=== PATIENT | female | born 2000 | race Hispanic/Latino ===

== ENCOUNTER 2021-01-14 18:25 | Emergency (ER) | payer MEDICAID ==
[~2021-01-14] VITALS: Ht 154.9 cm; Wt 56.2 kg
[2021-01-14 18:47] LABS: APPEARANCE,URINE CLOUDY (CLEAR); BILIRUBIN,URINE NEGATIVE (NEGATIVE); COLOR,URINE YELLOW (YELLOW); GLUCOSE, URINE (UA) NEGATIVE (NEGATIVE); KETONES,URINE NEGATIVE (NEGATIVE); LEUKOCYTE ESTERASE ,URINE LARGE (NEGATIVE); NITRATE,URINE NEGATIVE (NEGATIVE); OCCULT BLOOD,URINE MODERATE (NEGATIVE); PH,URINE 8.5 (5.0-8.0); PROTEIN,URINE 30 mg/dL (NEGATIVE); UROBILINOGEN,URINE 0.2 mg/dL (0.2-1.0)
[2021-01-14 18:50] VITALS: BP 110/73
[2021-01-14 18:52] LABS: HCG,QUAL RESULT NEGATIVE (NEGATIVE)
[2021-01-14 18:58] LABS: BASOPHILS % (AUTO) 0.3 % (0.0-5.0); EOSINOPHILS % (AUTO) 0.6 % (0.0-8.0); HEMATOCRIT 38.3 % (36-48); LYMPHOCYTES % (AUTO) 15.9 % (21.0-51.0); MEAN CORPUSCULAR HEMOGLOBIN 30.4 pg (27.0-33.0); MEAN CORPUSCULAR HGB CONC 32.6 g/dL (32.0-36.0); MEAN CORPUSCULAR VOLUME 93.2 fL (80-100); MONOCYTES % (AUTO) 6.4 % (3.0-13.0); NEUTROPHILS % (AUTO) 76.3 % (40.0-77.0); PLATELET COUNT (AUTO) 347 K/uL (130-400); RED BLOOD CELL COUNT(AUTO) 4.11 MIL/uL (4.00-5.50); RED CELL DISTRIBUTION WIDTH 13.4 % (11.0-15.5); WHITE BLOOD COUNT (AUTO) 12.2 K/uL (4.8-10.8)
[2021-01-14] MEDS ORDERED: ONDANSETRON 4MG INJ IVP ONE (19:00)
[2021-01-14 19:16] LABS: BACTERIA,URINE Few /HPF (None Seen); RBC,URINE None Seen /HPF (0-1); SQUAMOUS EPITHELIAL CELL,UR None Seen /HPF (0-2); WBC,URINE Full Field /HPF (0-1)
[2021-01-14 19:22] LABS: ALBUMIN 4.1 g/dL (3.5-5.0); BILIRUBIN,TOTAL 0.2 mg/dL (0.2-1.0); CREATININE 0.8 mg/dL (0.5-1.5); CRP QUANTITATIVE 10.3 mg/L (0.00-9.0); TOTAL PROTEIN, SERUM 7.7 g/dL (6.0-8.3)
[2021-01-14 19:29] LABS: POTASSIUM 3.4 mmol/L (3.5-5.1)
[2021-01-14 19:30] VITALS: BP 110/73
[2021-01-14] MEDS ORDERED: ZOSYN 3.375GM +NS 50ML IV ONE (20:00)
[2021-01-14] MEDS ORDERED: 0.9%NACL 50ML 50 ML IV ONE (20:00)
[2021-01-14] MEDS ORDERED: IOHEXOL 350 MG/ML 100ML INFUS..BTL IV ONE (20:05)
[2021-01-14] MEDS ORDERED: PHEN-847 PO (20:51)
[2021-01-14] MEDS ORDERED: CEPH500B PO (20:51)
[2021-01-14 21:14] VITALS: BP 116/59
[2021-01-14] MEDS ORDERED: KETOROLAC 30MG VIAL (30MG/ML) IV ONE (21:30)
[2021-01-14 21:51] VITALS: BP 111/56
== END 2021-01-14 21:59 | disposition home or self-care (01) ==
LOC: EDH 18:25
DX: N30.90 Cystitis, unspecified without hematuria (principal)
CPT/HCPCS: 36415; 74177; 80053; 81001; 81025; 83690; 85025; 86140; 87077; 87088; 87186; 96365; 96375; 99285; J1885; J2405; J2543; Q9967